=== PATIENT | male | born 1970 | race Hispanic/Latino ===

== ENCOUNTER 2016-05-16 06:41 | Emergency (ER) | payer OTHER ==
[~2016-05-16] VITALS: Ht 167.6 cm; Wt 90.7 kg
[~2016-05-16 06:41] MED LIST: ALPRAZOLAM0.5 M1 PO; AMLODIPINE BESY10 M1 PO; ATORVASTATIN CA80 MG PO; BISOPRL PO; BISOPROLOL FUMA10 M1 PO; COZAAR 100MG T100 MG PO; CRESTOR40 MG PO; DILAUDID2 M1 PO; FENOFIBRATE MI200 MG PO; FENOFIBRATE200 M1 PO; FENOFIBRATE200 MG PO; HCTZ PO; INVOKANA100 MG PO; LEVEMIR 10100 UNITS/ SC; LEVEMIR FLEX100 U/M1 SC; LOSARTAN POTASS1 TA2 PO; METFORMIN HCL500 M4 PO; NOVOLOG100 U/ML SC; OMEGA-3-ACID ETH1 GM PO; PANTOPRAZOLE SO40 MG PO; PERCOCET 325 MG1 TA2 PO; TRICOR145 MG PO; VASCEPA1 G1 PO; VGO 201 EACH; VITAMIN E400 IU PO; ZOFRAN4 M2 PO; [UNRECOGNIZED DRUG - OTHER] PO
[2016-05-16 06:54] VITALS: BP 140/84
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
== END 2016-05-16 07:52 ==
LOC: ERH 06:41
DX: S63.91XA Sprain of unspecified part of right wrist and hand, initial encounter (principal); S63.501A Unspecified sprain of right wrist, initial encounter; Y04.8XXA Assault by other bodily force, initial encounter
CPT/HCPCS: 73120-RT; 96372; J1885

== ENCOUNTER 2016-05-28 15:08 | Emergency (ER) | payer OTHER ==
[~2016-05-28] VITALS: Ht 167.6 cm; Wt 97.5 kg
[2016-05-28 15:38] LABS: ABSOLUTE BASOPHIL COUNT 0 /CUMM (0.0-0.2); ABSOLUTE EOSINOPHIL COUNT 0.1 /CUMM (0.0-0.7); ABSOLUTE GRANULOCYTE CT 8.3 /CUMM (1.4-6.5); ABSOLUTE LYMPH COUNT 1.2 /CUMM (1.2-3.4); ABSOLUTE MONOCYTE COUNT 0.5 /CUMM (0.10-0.60); BASOPHIL % 0.2 % (0.0-2.0); EOSINOPHIL % 0.5 % (0-5); HEMATOCRIT 48.8 % (42-52); MEAN CORPUSCULAR HGB 29.3 PG (27.0-31.0); MEAN CORPUSCULAR HGB CONC 34.4 G/DL (33.0-37.0); MEAN CORPUSCULAR VOLUME 85.3 FL (80.0-94.0); MEAN PLATELET VOLUME 8.8 FL (7.4-10.4); PLATELET COUNT 226 /CUMM (130-400); RBC DISTRIBUTION WIDTH 13.5 % (11.5-14.5); RED BLOOD CELL CT 5.73 /CUMM (4.70-6.10)
[2016-05-28 15:58] LABS: GRANULOCYTE % 82.7 % (42.2-75.2)
--- NOTE | 2016-05-28 17:49 | ED GI/GU/ABDOMINAL COMPLAINT ---
History of Present Illness General Chief Complaint: Abdominal Pain/Flank Pain Stated Complaint: ABD PAIN,VOMITNIG X 1 DAY Source: patient, family, old records Exam Limitations: no limitations Vital Signs & Intake/Output Vital Signs & Intake/Output Vital Signs Date Time Temp Pulse Resp B/P Pulse O2 O2 Flow FiO2 Ox Delivery Rate 05/28 1804 99.1 99 16 159/95 95 Room Air 05/28 1511 98.1 90 18 156/100 98 Room Air Allergies Coded Allergies: NO KNOWN ALLERGIES (11/12/14) Reconcile Medications Amlodipine Besylate 10 MG TABLET 1 TAB PO DAILY HEART (Reported) Atorvastatin Calcium (Lipitor) 80 MG TABLET 1 TAB PO DAILY CHOLESTEROL ( Reported) Bisoprolol Fumarate 10 MG TABLET 1 TAB PO DAILY UNKNOWN (Reported) Fenofibrate,Micronized (Fenofibrate) 200 MG CAPSULE 1 CAP PO DAILY CHOLESTEROL (Reported) Hydromorphone HCl (Dilaudid) 2 MG TABLET 1 TAB PO Q6H PRN pain Icosapent Ethyl (Vascepa) 1 GM CAPSULE 1 CAP PO DAILY UNKNOWN (Reported) Insulin Aspart (Novolog) (Unknown Strength) VIAL (Unknown Dose) SC AD VGO INSULIN PUMP (Reported) Lidocaine 5 % ADH..PATCH 1 PAT TOP DAILY PAIN (Reported) Losartan (Cozaar) 100 MG TABLET 100 MG PO DAILY high blood pressure Metformin HCl (Metformin HCl ER) 500 MG TAB.ER.24H 1 TAB PO BID DIABETES ( Reported) Ondansetron (Zofran Odt) 4 MG TAB.RAPDIS 1 TAB SL TID PRN NAUSEA Pantoprazole Sodium 40 MG TABLET.DR 1 TAB PO DAILY GERD (Reported) Sub-Q Insulin Device, 20 Unit (Vgo 20) (Unknown Strength) EACH (Unknown Dose) DIABETES (Reported) Triage Note: PT STATES THAT HE HAS A HISTORY OF PANCREATITIS AND THAT HE HAS HAD N/V/D SINCE YESTERDAY, HAS MID EPIGASTRIC PAIN THAT STARTED AFTER THE SYMPTOMS. Triage Nurses Notes Reviewed? yes HPI: Patient is a 46 year old male presents complaining of sharp intermittent epigastric pain radiating to upper back. Curling in the position mildly improves symptoms, eating makes pain worse. Pain is a sharp pains currently severe. Patient had a 10 minute episode of dyspnea prior to arrival which has resolved. Feels similar to previous episodes of pancreatitis. 2 episodes of vomiting, 4 episodes of diarrhea onset after the pain began. Patient's daughter had GI symptoms the day prior to patient's onset of symptoms. Patient denies fevers, chills, dysuria, hematuria. Past History Travel History Traveled to [place] past 21 day No Medical History Any Pertinent Medical History? see below for history Neurological: NONE EENT: NONE Cardiovascular: hypertension, hyperlipidemia Respiratory: NONE Gastrointestinal: pancreatitis, ACID REFLUX Hepatic: fatty liver. 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 No Review of Systems Review of Systems Constitutional: Denies: chills, fever. EENTM: Reports: no symptoms. Respiratory: Reports: short of breath (x 10 minutes, resolved). Denies: cough. Cardiovascular: Denies: chest pain. GI: Reports: see HPI. Genitourinary: Reports: no symptoms. Musculoskeletal: Reports: back pain. Skin: Reports: no symptoms. Neurological/Psychological: Reports: no symptoms. Hematologic/Endocrine: Reports: no symptoms. Immunologic/Allergic: Reports: no symptoms. Physical Exam Physical Exam General Appearance: well developed/nourished, alert, awake Head: atraumatic, normal appearance Eyes: Bilateral: normal appearance, PERRL, EOMI. Ears, Nose, Throat, Mouth: hearing grossly normal, moist mucous membrane Neck: normal inspection, supple, full range of motion Respiratory: normal breath sounds, chest non-tender, no respiratory distress, lungs clear Cardiovascular: regular rate/rhythm Gastrointestinal: soft, mild right upper quadrant tenderness. Moderate epigastric tenderness. Back: normal inspection, normal range of motion Extremities: normal range of motion Neurologic/Psych: no motor/sensory deficits, awake, alert, oriented x 3, normal gait, normal mood/affect Skin: intact, normal color, warm/dry Core Measures ACS in differential dx? Yes ASA ordered for poss ACS? No-ACS ruled out Severe Sepsis Present: No Septic Shock Present: No Progress Differential Diagnosis: AAA, AMI, appendicitis, biliary colic, cholecystitis, diverticulitis, gastritis, hepatitis, hernia, ischemic bowel, inflamm bowel dis, pancreatitis, PUD/GERD, pyelonephritis, SBO, ureterolithiasis, UTI/pyelo Plan of Care: Orders Procedure Date/time Status Add-on Test (ER Only) 05/28 1604 Active TRIGLYCERIDES 05/28 1528 Complete LIPASE 05/28 1528 Complete LDH (LACT ACID DEHYDROGENASE) 05/28 1528 Complete AMYLASE 05/28 1528 Complete TROPONIN LEVEL 05/28 1514 Complete LACTIC ACID 05/28 1514 Complete COMPREHENSIVE METABOLIC PANEL 05/28 1514 Complete CBC WITHOUT DIFFERENTIAL 05/28 1514 Complete EKG 05/28 1514 Active Laboratory Tests 05/28/16 1528: Anion Gap 13, Estimated GFR > 60, BUN/Creatinine Ratio 17.8, Glucose 125 H, Lactic Acid 1.3, Calcium 9.4, Total Bilirubin 0.9, AST 25, ALT 61, Alkaline Phosphatase 74, Lactate Dehydrogenase 425, Troponin I < 0.01, Total Protein 7.5, Albumin 4.5, Globulin 3.0, Albumin/Globulin Ratio 1.5, Triglycerides 383 H, Amylase 58, Lipase 137, CBC w Diff NO MAN DIFF REQ, RBC 5.73, MCV 85.3, MCH 29.3 , RDW 13.5, MPV 8.8, Gran % 82.7 H, Lymphocytes % 11.7 L, Monocytes % 4.9, Eosinophils % 0.5, Basophils % 0.2, Absolute Granulocytes 8.3 H, Absolute Lymphocytes 1.2, Absolute Monocytes 0.5, Absolute Eosinophils 0.1, Absolute Basophils 0, PUBS MCHC 34.4 Patient reevaluated after initial dose of pain medication. [id number] improvement, continues with moderate pain. Additional pain medication ordered. Results of CT scan and labs discussed with the patient and his . Pancreatic enzymes unremarkable, no CT evidence of pancreatitis. Patient nontoxic appearing, no peritoneal signs on exam. Patient appears stable for discharge with close outpatient follow-up. (ALEXIS GONZALEZ) Diagnostic Imaging: Viewed by Me: CT Scan. Discussed w/RAD: CT Scan. Radiology Impression: PATIENT: VIVEK SAMSON PRESENT AGE: 46 PATIENT ACCOUNT NO: [id number] : 69 LOCATION: [facility] ORDERING PHYSICIAN: ALEXIS DELANEY SERVICE DATE: 05/28/16 EXAM TYPE: CAT - CT ABD & PELVIS W IV CONTRAST EXAMINATION: CT ABDOMEN AND PELVIS WITH CONTRAST CLINICAL INFORMATION: Epigastric pain, history of pancreatitis COMPARISON: None. TECHNIQUE: Multidetector volumetric imaging was performed of the abdomen and pelvis before and after the IV administration of 95 mL of Optiray 320 intravenous contrast. Sagittal and coronal reformatted images were obtained on the technologist's workstation. DLP: 648.11 mGy-cm. FINDINGS: LUNG BASES: The visualized lung bases demonstrate mild atelectasis. LIVER, GALLBLADDER, AND BILIARY TREE: The liver demonstrates hypoattenuation suggesting fatty infiltration. No focal hepatic lesion or biliary ductal dilatation is present. The gallbladder is unremarkable with no evidence of radiopaque gallstones, gallbladder wall thickening, or obvious pericholecystic inflammatory changes. PANCREAS: Unremarkable. SPLEEN: Unremarkable. ADRENAL GLANDS: Unremarkable. KIDNEYS AND URETERS: The kidneys are normal in size, shape, and attenuation. No hydronephrosis, hydroureter, or calculi seen. BLADDER: Unremarkable. GASTROINTESTINAL TRACT: The small and large bowel are unremarkable. The appendix is unremarkable. ABDOMINAL WALL: No significant hernia is appreciated. LYMPH NODES: Normal. VASCULAR: Unremarkable. PELVIC VISCERA: Unremarkable. OSSEOUS STRUCTURES: Multilevel endplate osteophytes are present in the spine. IMPRESSION : 1. No acute findings identified. Normal appearance of the pancreas. 2. Hypoattenuation of the liver suggesting fatty infiltration DICTATED BY: JATINDER AJ MD DATE/TIME DICTATED:05/28/161842 DECISION SUPPORT MANAGER:MAGDIEL DATE/ TIME TRANSCRIBED:05/28/161842 CONFIDENTIAL, DO NOT COPY WITHOUT APPROPRIATE AUTHORIZATION. <Electronically signed in Other Vendor System> SIGNED BY: JATINDER AJ MD 05/28/16 720 Initial ED EKG: normal intervals, normal QRS complex, normal sinus rhythm, nonspecific ST T wave chg Prior EKG: unchanged Departure Departure Disposition: HOME OR SELF CARE Condition: Stable Clinical Impression Primary Impression: Epigastric pain Referrals: ZUHAIR SANTOS MD (PCP/Family) Additional Instructions: Follow up with your primary doctor this week for further evaluation. Call in the morning for appointment. Clear liquid diet for 24 hours then slowly advance your diet as tolerated. Return to the ER if unable to stay hydrated, fevers, increasing pain, pain localizes to the right lower abdomen or worsening of symptoms. Departure Forms: Customer Survey General Discharge Information Prescriptions: Current Visit Scripts Hydromorphone HCl (Dilaudid) 1 TAB PO Q6H PRN pain #10 TAB Ondansetron (Zofran Odt) 1 TAB SL TID PRN NAUSEA #10 TAB
[2016-05-28] MEDS ORDERED: LIPITOR80 M1 PO (18:23)
[2016-05-28] MEDS ORDERED: NOVOLOG100 UNIT/2 SC (18:28)
[2016-05-28] MEDS ORDERED: LIDOCAINE1 EACH TOP (18:29)
--- NOTE | 2016-05-28 18:56 | CT SCAN REPORT ---
EXAMINATION: CT ABDOMEN AND PELVIS WITH CONTRAST CLINICAL INFORMATION: Epigastric pain, history of pancreatitis COMPARISON: None. TECHNIQUE: Multidetector volumetric imaging was performed of the abdomen and pelvis before and after the IV administration of 95 mL of Optiray 320 intravenous contrast. Sagittal and coronal reformatted images were obtained on the technologist's workstation. DLP: 648.11 mGy-cm. FINDINGS: LUNG BASES: The visualized lung bases demonstrate mild atelectasis. LIVER, GALLBLADDER, AND BILIARY TREE: The liver demonstrates hypoattenuation suggesting fatty infiltration. No focal hepatic lesion or biliary ductal dilatation is present. The gallbladder is unremarkable with no evidence of radiopaque gallstones, gallbladder wall thickening, or obvious pericholecystic inflammatory changes. PANCREAS: Unremarkable. SPLEEN: Unremarkable. ADRENAL GLANDS: Unremarkable. KIDNEYS AND URETERS: The kidneys are normal in size, shape, and attenuation. No hydronephrosis, hydroureter, or calculi seen. BLADDER: Unremarkable. GASTROINTESTINAL TRACT: The small and large bowel are unremarkable. The appendix is unremarkable. ABDOMINAL WALL: No significant hernia is appreciated. LYMPH NODES: Normal. VASCULAR: Unremarkable. PELVIC VISCERA: Unremarkable. OSSEOUS STRUCTURES: Multilevel endplate osteophytes are present in the spine. IMPRESSION: 1. No acute findings identified. Normal appearance of the pancreas. 2. Hypoattenuation of the liver suggesting fatty infiltration
[2016-05-28] MEDS ORDERED: ZOFRAN ODT4 M1 SL (19:45)
[2016-05-28] MEDS ORDERED: DILAUDID2 M1 PO (19:45)
[2016-05-28 20:02] VITALS: BP 142/89
== END 2016-05-28 20:10 ==
LOC: ERH 15:08
PROVIDERS: Emergency Medicine
DX: R10.13 Epigastric pain (principal)
CPT/HCPCS: 74177; 93005; 93010; 96374; 96375; 96376; J2405